=== PATIENT | female | born 1965 | race Two or more races ===

== ENCOUNTER 2018-08-06 23:42 | Emergency (ER) | payer SELFPAY ==
[~2018-08-06] VITALS: Ht 157.5 cm; Wt 59.0 kg
--- NOTE | 2018-08-06 23:45 | NUR ---
ED Nurse Note: Pt brought in by [facility] and c/o L leg pain. Pt is homeless and got kicked out from [facility]. Pt is AO x 3times, VSS, on room air no distress. FRANCISCO seen Pt at bedside.
[2018-08-06 23:50] VITALS: BP 105/70
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
--- NOTE | 2018-08-07 01:20 | NUR ---
ED Nurse Note: Provided orange juice and sandwiches. Assited pt went to restroom.
--- NOTE | 2018-08-07 02:30 | NUR ---
ED Nurse Note: Pt is sleeping, no c/o pain at this time. will continue to monitor.
[2018-08-07 04:10] VITALS: BP 107/72
[2018-08-07 05:30] VITALS: BP 107/72
--- NOTE | 2018-08-07 05:30 | NUR ---
Homeless Discharge: Patient is being discharged from medical care. Awake, alert and oriented x4. After care instructions, including referral to community resources were given. Patient verbalized understanding of After care instructions; patient does not request medications, equipment or placement at this time. Patient signed patient consent in the medical record for patient destination upon discharge. All medical devices such as ID band was removed. Patient ambulated out with cane and all personal belongings.
== END 2018-08-07 05:30 | disposition home or self-care (01) ==
LOC: EDBD 23:42 → EMR 23:55
DX: M79.605 Pain in left leg (principal); F10.129 Alcohol abuse with intoxication, unspecified
CPT/HCPCS: 99282